=== PATIENT | female | born 1965 | race Caucasian/White ===

== ENCOUNTER 2016-09-09 15:33 | Outpatient (CLI) ==
[2014-05-05 20:24] VITALS: BMI 25.0
--- NOTE | 2016-09-09 16:37 | DI ---
Examination: Two radiographic images of the chest. Comparison: 02/05/2012. Reason for study: Chest pain. FINDINGS: No pneumothorax, pleural effusion, focal consolidation. The cardiomediastinal silhouette is not enlarged. 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 Impression: 1. No acute cardiac pulmonary findings. 2. New nodularities in the left hilum likely granulomas, recommend follow-up radiograph to document stability.
[2016-09-09 16:59] LABS: CREATINE KINASE MB 1.2 ng/ml (0.0-3.6)
== END 2016-09-09 15:34 | disposition home or self-care (01) ==
LOC: LAB 15:33
PROVIDERS: ATTEND General Practice
DX: R07.89 Other chest pain (principal); R07.9 Chest pain, unspecified
CPT/HCPCS: 36415; 82550; 82553; 84484

== ENCOUNTER 2016-09-09 15:38 | Outpatient (POV) ==
[2014-05-05 20:24] VITALS: BMI 25.0
== END 2017-09-09 15:39 ==
LOC: OUTPT 15:38
PROVIDERS: ATTEND General Practice
DX: R07.89 Other chest pain (principal)
CPT/HCPCS: 93005; 93010

== ENCOUNTER 2016-09-10 06:31 | Outpatient (CLI) ==
[2014-05-05 20:24] VITALS: BMI 25.0
--- NOTE | 2016-09-10 14:49 | STRESS ---
Date of Test: 09/10/16 Ordering Physician: HORTENSIA LEHMAN Reason for Exam: CHEST PAIN, HX SVT Current Medications: METOPROLOL, ASA, ZYRTEC Physical Findings: S1, S2, NO S3 Target Heart Rate: 144/170 Resting EKG: SINUS RHYTHM/NO ACUTE CHANGES/PVC STAGE MPH/GRADE HEART RATE BPM BLOOD PRESSURE mmhg RHYTHM S-T SEGMENT UP DOWN SYMPTOMS,COMMENTS At Rest 70 136/70 SR X NONE 1 1.7/10% 142/80 SR X NONE 2 2.5/12% 3 3.4/14% 4 4.2/16% 5 5.0/18% Immediately After 145 SR X SHORT OF BREATH Total Time: 4:00 Maximum Heart Rate Reached: 145 Reason for Termination: SHORT OF BREATH 1 MIN POST EXERCISE SINUS RHYTHM 5 MIN POST EXERCISE: HR: 75/BPM, BP: 130/68 MMHG, SINUS RHYTHM, +/- INTERPRETATION: 98% OXYGEN SATURATION WITH EXERCISE ON ROOM AIR METS 7.0 1. NO EVIDENCE OF ISCHEMIA BY ST-T WAVE 2. NO CHEST PAIN OR CHEST DISCOMFORT 3. BLOOD PRESSURE RESPONSE NORMAL 4. NO ARRHYTHMIAS MTDD
== END 2016-09-10 06:32 | disposition home or self-care (01) ==
LOC: CAR 06:31
PROVIDERS: ATTEND General Practice
DX: R07.9 Chest pain, unspecified (principal); R07.89 Other chest pain
CPT/HCPCS: 93017; 93018

== ENCOUNTER 2016-09-11 11:00 | Outpatient (CLI) ==
[2014-05-05 20:24] VITALS: BMI 25.0
--- NOTE | 2016-09-11 13:18 | CT ---
EXAM: CT THORAX HISTORY: Chest pain and pressure for several months. TECHNIQUE: CT thorax without intravenous contrast. 5-mm axial sections. Coronal and sagittal re-fo rmations. COMPARISON: None FINDINGS: Heart size appears borderline enlarged. Prominent caliber of the pulmonary arterial tree with the m ain arteries at about 2.5 cm. There is no pericardial effusion. No obvious mediastinal or hilar ly mphadenopathy within limits of this unenhanced exam. In the lateral left lung base, there is minimal linear opacity thought to represent either scarring or discoid atelectasis. The lungs are otherwise grossly clear. No vascular congestion, pulmonary e luis, pneumothorax. The bones demonstrate early degenerative endplate changes of the thoracic spine. IMPRESSION: 1. Borderline enlarged heart size. 2. Prominent pulmonary arterial caliber suggesting a degree of pulmonary arterial hypertension. 3. Subtle scarring or linear atelectasis in left lateral lung base. The lungs are otherwise clear.
== END 2016-09-11 11:01 | disposition home or self-care (01) ==
LOC: RAD 11:00
PROVIDERS: ATTEND General Practice
DX: R07.89 Other chest pain (principal); R07.9 Chest pain, unspecified; R91.8 Other nonspecific abnormal finding of lung field
CPT/HCPCS: 36415; 82550

== ENCOUNTER 2016-11-25 10:47 | Outpatient (CLI) ==
[2014-05-05 20:24] VITALS: BMI 25.0
[2016-11-25 13:34] LABS: BASOPHILS # (AUTO) 0.1 K/uL (0-0.2); EOSINOPHILS # (AUTO) 0.1 K/ul (0.0-0.7); EOSINOPHILS % (AUTO) 2.1 % (0.0-7.0); HEMATOCRIT 38.9 % (37.0-47.0); HEMOGLOBIN 12.6 g/dl (12.0-16.0); IMMATURE GRANULOCYTE % (AUTO) 0.3 % (0.0-5.0); LYMPHOCYTES # (AUTO) 1.5 K/uL (0.60-3.4); MEAN CORPUSCULAR HEMOGLOBIN 31.4 pg (27.0-31.0); MEAN CORPUSCULAR HGB CONC 32.4 (31.8-35.4); MONOCYTES # (AUTO) 0.3 K/uL (0.4-2.0); MONOCYTES % (AUTO) 5.7 (0-10); NEUTROPHILS # (AUTO) 3.7 K/ul (2.0-6.9); NEUTROPHILS % (AUTO) 64.9; PLATELET COUNT 315 10^3/uL (140-440); RED BLOOD COUNT 4.01 10^6/ul (4.20-5.40); WHITE BLOOD COUNT 5.77 K/ul (4.6-10.2)
[2016-11-25 13:35] LABS: BILIRUBIN,URINE Negative (NEGATIVE); KETONES,URINE Negative (NEGATIVE); LEUKOCYTE ESTERASE ,URINE Negative (NEGATIVE); NITRITE,URINE Negative (NEGATIVE); PROTEIN,URINE Negative (NEGATIVE); URINE, BLOOD Negative (NEGATIVE)
[2016-11-25 14:34] LABS: ADD URINE MICROSCOPIC NO
[2016-11-25 14:36] LABS: ALBUMIN 4.2 g/dL (3.4-5.0); ALBUMIN/GLOBULIN RATIO 1.14; ANION GAP 14.5; BILIRUBIN,TOTAL 0.32 mg/dL (0.00-1.20); CALCIUM 10.1 mg/dL (8.2-10.2); CHOL/HDL RATIO 4.2 (4.5-5.5); DIGOXIN 2.07 ng/mL (1.00-2.00); POTASSIUM 4.5 mmol/L (3.5-5.10); TOTAL PROTEIN 7.9 g/dL (6.4-8.2)
== END 2016-11-25 10:48 | disposition home or self-care (01) ==
LOC: LAB 10:47
PROVIDERS: ATTEND General Practice
DX: I27.2 Other secondary pulmonary hypertension (principal); I47.1 Supraventricular tachycardia; R51 Headache; T46.0X1A Poisoning by cardiac-stimulant glycosides and drugs of similar action, accidental (unintentional), initial encounter; E78.5 Hyperlipidemia, unspecified; Z79.899 Other long term (current) drug therapy
CPT/HCPCS: 36415; 80053; 80061; 80162; 81001; 85025

== ENCOUNTER 2017-12-16 08:13 | Outpatient (CLI) ==
[2014-05-05 20:24] VITALS: BMI 25.0
== END 2017-12-16 08:14 | disposition home or self-care (01) ==
LOC: LAB 08:13
PROVIDERS: ATTEND General Practice
DX: I47.1 Supraventricular tachycardia (principal); R51 Headache; I27.20 Pulmonary hypertension, unspecified; Z79.899 Other long term (current) drug therapy
CPT/HCPCS: 36415; 80053; 80061; 81001; 85025

== ENCOUNTER 2017-12-16 16:08 | Outpatient (CLI) ==
[2014-05-05 20:24] VITALS: BMI 25.0
== END 2017-12-16 16:09 | disposition home or self-care (01) ==
LOC: FCC-LAB 16:08
PROVIDERS: ATTEND General Practice
DX: K59.00 Constipation, unspecified (principal); R10.9 Unspecified abdominal pain
CPT/HCPCS: 82272

== ENCOUNTER 2017-12-18 11:45 | Outpatient (CLI) ==
[2014-05-05 20:24] VITALS: BMI 25.0
== END 2017-12-18 11:46 | disposition home or self-care (01) ==
LOC: RAD 11:45
PROVIDERS: ATTEND General Practice
DX: Z12.31 Encounter for screening mammogram for malignant neoplasm of breast (principal)
CPT/HCPCS: 77067

== ENCOUNTER 2018-01-14 10:27 | Outpatient (CLI) ==
[2014-05-05 20:24] VITALS: BMI 25.0
--- NOTE | 2018-01-14 13:16 | US ---
EXAM: Transvaginal pelvic ultrasound. History: Prominent cervix. Comparison: CT abdomen pelvis 05/05/2014 Technique: Multiple sonographic images through the pelvis were obtained. Color duplex Doppler was u sed to interrogate vascular flow. Findings: The uterus measures 8 cm x 7 cm x 5 cm. Multiple Nabothian cysts seen within the cervix with the larg est measuring 5 mm. Endometrium measures 5 mm in thickness. Small amount of fluid is seen within th e endometrial cavity. 1.7 cm heterogeneous lesion within the uterine myometrium is probably a fibroi d. No free pelvic fluid. Neither ovary was visualized probably due to obscuration by bowel gas. No adn exal masses. Impression: 1. Probable small uterine fibroid. 2. Small amount of fluid in the endometrial cavity. 3. Small cervical Nabothian cysts
== END 2018-01-14 10:28 | disposition home or self-care (01) ==
LOC: RAD 10:27
PROVIDERS: ATTEND General Practice
DX: N88.8 Other specified noninflammatory disorders of cervix uteri (principal)

== ENCOUNTER → 2018-03-05 | Outpatient (REF) ==
[2014-05-05 20:24] VITALS: BMI 25.0
== END ==
LOC: LAB 08:59
DX: Z02.89 Encounter for other administrative examinations (principal)
CPT/HCPCS: 36415; 80053; 80061; 83036; 83540; 84100; 84550; 85025; 86140

== ENCOUNTER 2018-05-05 09:59 | Outpatient (CLI) ==
[2014-05-05 20:24] VITALS: BMI 25.0
== END 2018-05-05 10:00 | disposition home or self-care (01) ==
LOC: FCC-LAB 09:59
PROVIDERS: ATTEND General Practice
DX: R51 Headache (principal); I27.20 Pulmonary hypertension, unspecified; I47.1 Supraventricular tachycardia; D64.9 Anemia, unspecified; T46.0X1A Poisoning by cardiac-stimulant glycosides and drugs of similar action, accidental (unintentional), initial encounter
CPT/HCPCS: 36415; 80053; 80061; 81001; 85025

== ENCOUNTER 2018-09-08 08:44 | Outpatient (CLI) ==
[2014-05-05 20:24] VITALS: BMI 25.0
== END 2018-09-08 08:45 | disposition home or self-care (01) ==
LOC: RHC-LAB 08:44
PROVIDERS: ATTEND General Practice
DX: I27.20 Pulmonary hypertension, unspecified (principal); I47.1 Supraventricular tachycardia; D64.9 Anemia, unspecified; R51 Headache; T46.0X1A Poisoning by cardiac-stimulant glycosides and drugs of similar action, accidental (unintentional), initial encounter; Z79.899 Other long term (current) drug therapy
CPT/HCPCS: 36415; 80053; 80061; 81001; 85025

== ENCOUNTER 2018-12-23 11:46 | Outpatient (CLI) ==
[2014-05-05 20:24] VITALS: BMI 25.0
== END 2018-12-23 11:47 | disposition home or self-care (01) ==
LOC: RHC-LAB 11:46
PROVIDERS: ATTEND General Practice
DX: R51 Headache (principal); M79.10 Myalgia, unspecified site; R68.83 Chills (without fever)
CPT/HCPCS: 36415; 81001; 85025; 86617; 87502

== ENCOUNTER 2019-01-12 10:41 | Outpatient (CLI) ==
[2014-05-05 20:24] VITALS: BMI 25.0
== END 2019-01-12 10:42 | disposition home or self-care (01) ==
LOC: RHC-LAB 10:41
PROVIDERS: ATTEND General Practice
DX: R51 Headache (principal); I47.1 Supraventricular tachycardia; I27.20 Pulmonary hypertension, unspecified; T46.0X1A Poisoning by cardiac-stimulant glycosides and drugs of similar action, accidental (unintentional), initial encounter; D64.9 Anemia, unspecified
CPT/HCPCS: 36415; 80053; 85025

== ENCOUNTER 2019-01-25 10:31 | Outpatient (CLI) ==
[2014-05-05 20:24] VITALS: BMI 25.0
== END 2019-01-25 10:32 | disposition home or self-care (01) ==
LOC: RHC-LAB 10:31
PROVIDERS: ATTEND General Practice
DX: R51 Headache (principal); I27.20 Pulmonary hypertension, unspecified; I47.1 Supraventricular tachycardia; T46.0X1A Poisoning by cardiac-stimulant glycosides and drugs of similar action, accidental (unintentional), initial encounter; D64.9 Anemia, unspecified
CPT/HCPCS: 36415; 85025

== ENCOUNTER 2019-01-29 10:40 | Outpatient (CLI) ==
[2014-05-05 20:24] VITALS: BMI 25.0
== END 2019-01-29 10:41 | disposition home or self-care (01) ==
LOC: LAB 10:40
PROVIDERS: ATTEND General Practice
DX: R51 Headache (principal); M79.10 Myalgia, unspecified site; R68.83 Chills (without fever); R19.7 Diarrhea, unspecified; R10.30 Lower abdominal pain, unspecified; W57.XXXS Bitten or stung by nonvenomous insect and other nonvenomous arthropods, sequela
CPT/HCPCS: 36415; 82272; 87015; 87045; 87177; 87329; 87493; 87899

== ENCOUNTER 2019-02-02 10:29 | Outpatient (CLI) ==
[2014-05-05 20:24] VITALS: BMI 25.0
--- NOTE | 2019-02-02 12:44 | DI ---
EXAM: Two views of the abdomen. History: Diarrhea. Findings: Nonspecific but nonobstructive bowel gas pattern. No free intraperitoneal air. No acute osseous abnormalities. No calcifications are seen projecting over the renal shadow. 1.7 cm nonspeci fic pelvic calcification. There is facet hypertrophy within the lower lumbar spine. Impression: 1. No evidence for bowel obstruction and no free intraperitoneal air. 2. Nonspecific pelvic calcification
== END 2019-02-02 10:30 | disposition home or self-care (01) ==
LOC: RAD 10:29
PROVIDERS: ATTEND General Practice
DX: R19.7 Diarrhea, unspecified (principal); R10.30 Lower abdominal pain, unspecified; R68.83 Chills (without fever)

== ENCOUNTER 2019-04-06 11:21 | Outpatient (CLI) ==
[2014-05-05 20:24] VITALS: BMI 25.0
--- NOTE | 2019-04-07 09:34 | MAMMO ---
EXAM: Digital screening mammogram with Tomosynthesis HISTORY: Screening COMPARISON: 12/18/2017 FINDINGS: Digital MLO and CC views of the right and left breast were performed. Tomosynthesis was performed. Computer aided detection utilized. There are scattered fibroglandular densities. There i s no evidence for mass, asymmetry, distortion, or suspicious calcifications in either breast. IMPRESSION: 1. No evidence of malignancy in the right or left breast. 2. Annual screening mammogram is recommended in one year. BIRADS category 1, negative examination
== END 2019-04-06 11:22 | disposition home or self-care (01) ==
LOC: RAD 11:21
PROVIDERS: ATTEND General Practice
DX: Z12.31 Encounter for screening mammogram for malignant neoplasm of breast (principal)